=== PATIENT | female | born 1995 | race Caucasian/White ===

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

== ENCOUNTER 2017-09-22 02:24 | Emergency (ER) | payer MEDICAID ==
[2017-09-22 05:07] LABS: APPEARANCE CLOUDY (CLEAR); BILIRUBIN 2+ (NEGATIVE); COLOR DK YELLOW (YELLOW); GLUCOSE NEGATIVE (NEGATIVE); KETONE SMALL mg/dL (NEGATIVE); NITRITE NEGATIVE (NEGATIVE); PROTEIN 1+ mg/dL (NEGATIVE); SPECIFIC GRAVITY 1.025 (1.005-1.020); UROBILINOGEN NORMAL (NORMAL)
[2017-09-22 05:08] LABS: AMORPHOUS SEDIMENT <1+ /lpf (NONE SEEN); BACTERIA FEW /hpf (NONE SEEN); CALCIUM OXALATE CRYSTALS 0-5 /hpf (NONE SEEN)
== END 2017-09-22 05:22 | disposition home or self-care (01) ==
LOC: D.ER 02:24
PROVIDERS: Family Medicine
DX: O26.899 Other specified pregnancy related conditions, unspecified trimester (principal); Z3A.00 Weeks of gestation of pregnancy not specified; R11.2 Nausea with vomiting, unspecified; R10.9 Unspecified abdominal pain

== ENCOUNTER → 2017-11-19 16:46 | Outpatient (CLI) | payer MEDICAID ==
[~2017-11-19 16:46] MED LIST: HYDROCODONE-APA1 TAB PO; MOTRIN600 MG PO; NORCO 10-325 TA1 TAB PO
[2017-11-19 17:32] LABS: ALBUMIN 2.2 g/dL (3.4-5.0); ALKALINE PHOSPHATASE 130 U/L (46-116); ALT (SGPT) 14 U/L (10-68); BILIRUBIN - DIRECT 0.05 mg/dL (0.00-0.30); BILIRUBIN - TOTAL 0.15 mg/dL (0.2-1.3); CALC OSMOLALITY 271 mosm/kg (275-300); CALCIUM 8.6 mg/dL (8.5-10.1); CARBON DIOXIDE 27.3 mmol/L (21.0-32.0); CHLORIDE - SERUM 106 mmol/L (98-107); CREATININE - SERUM 0.6 mg/dL (0.6-1.3); GLUCOSE 83 mg/dL (74-106); POTASSIUM - SERUM 3.7 mmol/L (3.5-5.1); PROTEIN - SERUM 5.1 g/dL (6.4-8.2); SODIUM 138 mmol/L (136-145); UREA NITROGEN 5 mg/dL (7-18); URIC ACID 4.7 mg/dL (2.6-7.2); eGFR NON AFRICAN AMERICAN > 90 mL/min (90-120)
[2017-11-19 17:35] LABS: BASOPHILS 0.1 % (0-2); EOSINOPHILS 1.3 % (0-7); HEMATOCRIT 32.5 % (36.0-48.0); HEMOGLOBIN 11.3 g/dL (12-16); IMMATURE GRANULOCYTES 0.2 % (0-5); LYMPHOCYTES 27.9 % (15-50); MCH 30.5 pg (26.0-34.0); MCHC 34.8 g/dL (31.0-37.0); MCV 87.6 fL (80.0-100.0); MEAN PLATELET VOLUME 11.2 fL (7.4-10.4); MONOCYTES 7.2 % (2-11); NEUTROPHILS 63.3 % (40-80); PLATELET COUNT 167 10x3/uL (130-400); RBC 3.71 10x6/uL (4.00-5.40); WBC 9.1 10x3/uL (4.8-10.8)
[2018-01-20 13:52] VITALS: BMI 34.5
== END | disposition home or self-care (01) ==
LOC: D.LDO 16:46
PROVIDERS: Obstetrics & Gynecology
DX: O16.3 Unspecified maternal hypertension, third trimester (principal); Z3A.35 35 weeks gestation of pregnancy

== ENCOUNTER → 2017-11-22 22:21 | Outpatient (CLI) | payer MEDICAID ==
[2018-01-20 13:52] VITALS: BMI 34.5
== END | disposition home or self-care (01) ==
LOC: D.LDO 22:21
DX: O26.893 Other specified pregnancy related conditions, third trimester (principal); Z3A.35 35 weeks gestation of pregnancy

== ENCOUNTER → 2017-11-24 08:38 | Outpatient (CLI) | payer MEDICAID ==
[2018-01-20 13:52] VITALS: BMI 34.5
== END | disposition home or self-care (01) ==
LOC: D.LDO 08:38
DX: O13.3 Gestational [pregnancy-induced] hypertension without significant proteinuria, third trimester (principal); Z3A.36 36 weeks gestation of pregnancy

== ENCOUNTER → 2017-11-26 16:20 | Outpatient (CLI) | payer MEDICAID ==
[2017-11-26 16:48] LABS: HEMATOCRIT 32.8 % (36.0-48.0); HEMOGLOBIN 11.4 g/dL (12-16); MCH 30.4 pg (26.0-34.0); MCHC 34.8 g/dL (31.0-37.0); MCV 87.5 fL (80.0-100.0); MEAN PLATELET VOLUME 11.4 fL (7.4-10.4); RBC 3.75 10x6/uL (4.00-5.40); RDW 13.1 % (11.5-14.5); WBC 9.5 10x3/uL (4.8-10.8)
[2017-11-26 17:06] LABS: ALT (SGPT) 16 U/L (10-68); CALC OSMOLALITY 274 mosm/kg (275-300); CALCIUM 9.1 mg/dL (8.5-10.1); CARBON DIOXIDE 24.1 mmol/L (21.0-32.0); CHLORIDE - SERUM 105 mmol/L (98-107); CREATININE - SERUM 0.6 mg/dL (0.6-1.3); GLUCOSE 96 mg/dL (74-106); POTASSIUM - SERUM 3.8 mmol/L (3.5-5.1); SODIUM 138 mmol/L (136-145); UREA NITROGEN 9 mg/dL (7-18); URIC ACID 5.3 mg/dL (2.6-7.2); eGFR NON AFRICAN AMERICAN > 90 mL/min (90-120)
[2018-01-20 13:52] VITALS: BMI 34.5
== END | disposition home or self-care (01) ==
LOC: D.LDO 16:20
PROVIDERS: Obstetrics & Gynecology
DX: O14.93 Unspecified pre-eclampsia, third trimester (principal); Z3A.36 36 weeks gestation of pregnancy

== ENCOUNTER → 2017-11-29 09:25 | Outpatient (CLI) | payer MEDICAID ==
[2017-11-29 10:17] LABS: APPEARANCE TURBID (CLEAR); BILIRUBIN NEGATIVE (NEGATIVE); COLOR YELLOW (YELLOW); GLUCOSE NEGATIVE (NEGATIVE); KETONE NEGATIVE (NEGATIVE); NITRITE NEGATIVE (NEGATIVE); PROTEIN 3+ mg/dL (NEGATIVE); SPECIFIC GRAVITY 1.025 (1.005-1.020); UROBILINOGEN NORMAL (NORMAL)
[2017-11-29 10:19] LABS: AMORPHOUS SEDIMENT >1+ /lpf (NONE SEEN); BACTERIA MANY /hpf (NONE SEEN); CALCIUM OXALATE CRYSTALS 0-5 /hpf (NONE SEEN); MUCUS >1+ /lpf (NONE SEEN)
[2017-11-29 10:20] LABS: EPITHELIAL CELLS 0-5 /hpf (0-5)
[2017-11-29 10:23] LABS: ALKALINE PHOSPHATASE 147 U/L (46-116); ALT (SGPT) 12 U/L (10-68); BILIRUBIN - DIRECT 0.07 mg/dL (0.00-0.30); BILIRUBIN - INDIRECT 0.08 mg/dL (0.00-1.00); BILIRUBIN - TOTAL 0.15 mg/dL (0.2-1.3); CALC OSMOLALITY 271 mosm/kg (275-300); CALCIUM 8.6 mg/dL (8.5-10.1); CARBON DIOXIDE 23.3 mmol/L (21.0-32.0); CHLORIDE - SERUM 106 mmol/L (98-107); CREATININE - SERUM 0.5 mg/dL (0.6-1.3); GLUCOSE 97 mg/dL (74-106); POTASSIUM - SERUM 3.7 mmol/L (3.5-5.1); PROTEIN - SERUM 5.1 g/dL (6.4-8.2); SODIUM 137 mmol/L (136-145); UREA NITROGEN 7 mg/dL (7-18); URIC ACID 5.6 mg/dL (2.6-7.2); eGFR NON AFRICAN AMERICAN > 90 mL/min (90-120)
[2017-11-29 10:25] LABS: BASOPHILS 0.1 % (0-2); EOSINOPHILS 2.3 % (0-7); HEMATOCRIT 32.9 % (36.0-48.0); HEMOGLOBIN 11.2 g/dL (12-16); IMMATURE GRANULOCYTES 0.3 % (0-5); LYMPHOCYTES 25.8 % (15-50); MCH 29.9 pg (26.0-34.0); MCV 87.7 fL (80.0-100.0); MEAN PLATELET VOLUME 11.7 fL (7.4-10.4); MONOCYTES 7.7 % (2-11); NEUTROPHILS 63.8 % (40-80); PLATELET COUNT 184 10x3/uL (130-400); RBC 3.75 10x6/uL (4.00-5.40); RDW 13.1 % (11.5-14.5); WBC 7.8 10x3/uL (4.8-10.8)
[2018-01-20 13:52] VITALS: BMI 34.5
== END | disposition home or self-care (01) ==
LOC: D.LDO 09:25
PROVIDERS: Obstetrics & Gynecology
DX: O14.93 Unspecified pre-eclampsia, third trimester (principal); Z3A.36 36 weeks gestation of pregnancy

== ENCOUNTER 2017-11-30 21:10 | Outpatient (CLI) | payer MEDICAID ==
[2017-11-30 21:38] LABS: BASOPHILS 0.1 % (0-2); EOSINOPHILS 1.6 % (0-7); HEMATOCRIT 32.8 % (36.0-48.0); HEMOGLOBIN 11.4 g/dL (12-16); IMMATURE GRANULOCYTES 0.3 % (0-5); LYMPHOCYTES 32.7 % (15-50); MCH 30.5 pg (26.0-34.0); MCHC 34.8 g/dL (31.0-37.0); MCV 87.7 fL (80.0-100.0); MEAN PLATELET VOLUME 11.8 fL (7.4-10.4); MONOCYTES 8.2 % (2-11); NEUTROPHILS 57.1 % (40-80); PLATELET COUNT 182 10x3/uL (130-400); RBC 3.74 10x6/uL (4.00-5.40); WBC 9.4 10x3/uL (4.8-10.8)
[2017-11-30 21:47] LABS: APPEARANCE HAZY (CLEAR); BILIRUBIN NEGATIVE (NEGATIVE); COLOR YELLOW (YELLOW); GLUCOSE NEGATIVE (NEGATIVE); KETONE NEGATIVE (NEGATIVE); NITRITE NEGATIVE (NEGATIVE); PROTEIN 2+ mg/dL (NEGATIVE); SPECIFIC GRAVITY 1.025 (1.005-1.020); UROBILINOGEN NORMAL (NORMAL)
[2017-11-30 21:48] LABS: RED CELLS - URINE 0-5 /hpf (0-5)
[2017-11-30 21:49] LABS: BACTERIA MANY /hpf (NONE SEEN); EPITHELIAL CELLS 0-5 /hpf (0-5)
[2017-11-30 21:56] LABS: ALBUMIN 2.1 g/dL (3.4-5.0); ALKALINE PHOSPHATASE 168 U/L (46-116); ALT (SGPT) 13 U/L (10-68); BILIRUBIN - TOTAL 0.19 mg/dL (0.2-1.3); CALC OSMOLALITY 272 mosm/kg (275-300); CALCIUM 9.2 mg/dL (8.5-10.1); CARBON DIOXIDE 26.8 mmol/L (21.0-32.0); CHLORIDE - SERUM 105 mmol/L (98-107); CREATININE - SERUM 0.6 mg/dL (0.6-1.3); GLUCOSE 95 mg/dL (74-106); POTASSIUM - SERUM 4.3 mmol/L (3.5-5.1); PROTEIN - SERUM 5.4 g/dL (6.4-8.2); SODIUM 137 mmol/L (136-145); UREA NITROGEN 9 mg/dL (7-18); URIC ACID 5.4 mg/dL (2.6-7.2); eGFR NON AFRICAN AMERICAN > 90 mL/min (90-120)
[2018-01-20 13:52] VITALS: BMI 34.5
== END 2017-11-30 23:04 | disposition home or self-care (01) ==
LOC: D.LDO 21:10
PROVIDERS: Obstetrics & Gynecology
DX: O26.893 Other specified pregnancy related conditions, third trimester (principal); Z3A.37 37 weeks gestation of pregnancy; R60.0 Localized edema

== ENCOUNTER 2017-12-02 05:41 | Inpatient (IN) | payer MEDICAID ==
[~2017-12-02] VITALS: Ht 160 cm; Wt 105.7 kg
--- NOTE | ~2017-12-02 | OP ---
PATIENT NAME: BRENDA TERRAZAS MEDICAL RECORD: [id number] :97 LOCATION:[facility] D.1219 ADMISSION DATE:12/02/17 SURGEON: ANTHONY ATKINSON MD DATE OF OPERATION: 12/02/2017 PREOPERATIVE DIAGNOSES: 1. Preeclampsia. 2. Failed induction of labor. POSTOPERATIVE DIAGNOSES: 1. Preeclampsia. 2. Failed induction of labor. 3. Uterine atony. PROCEDURE: Primary low transverse section and B-Suárez uterine compression suture placement. SURGEON: Anthony Atkinson MD ESTIMATED BLOOD LOSS: Approximately 1000 cc. IV FLUIDS: Per anesthesia record. ANESTHESIA: Regional via Epidural. COMPLICATIONS: Uterine atony. SPECIMENS: Placenta and cord for gases. FINDINGS: Viable . Placenta delivered manually intact, 3-vessel cord noted. Normal adnexa bilaterally. Finally, uterine atony requiring medical and surgical intervention. ESTIMATED BLOOD LOSS: 1000 cc. PROCEDURE: The patient was taken to the operating room where regional anesthesia was achieved without difficulty. The patient was then prepped in normal sterile fashion in the dorsal supine position. SCDs were on and functioning normally. A Forrester catheter had been placed and was draining freely. At this point, a Pfannenstiel skin incision was made, extended downward to the underlying subcutaneous fat to the level of the fascia. Fascia was then excised in the midline horizontally using the scalpel and the fascial incision was extended bilaterally using the Mcintyre scissors. The fascial incision edges were then grasped superiorly and inferiorly and tented upward, and sharply dissected from the underlying rectus muscle using the Bovie cautery and the Mcintyre scissors. Rectus muscles were then bluntly in the midline. The peritoneum identified and entered sharply at the superior aspect of the incision using the Metzenbaum scissors. The peritoneal incision was then extended bilaterally using the Metzenbaum scissors. A bladder blade was placed into the pelvis and a bladder flap created by excising the anterior leaf of the broad ligament across the lower uterine segment. A low transverse incision was made and extended using the Pelosi method. The infant's head was found to be extended and a Kiwi vacuum was placed on the occiput with correction to head flexion, 1 application, no pop offs, with delivery of the vertex without traction on the neck. Upon delivery of the vertex, the vacuum was removed and the OPERATIVE REPORT [id number] BRENDA TERRAZAS infant's body was delivered atraumatically. The baby was bulb suctioned upon delivery. Cord was clamped times 2, cut, and the was handed to the awaiting nursery team. Cord was then obtained for gases and the placenta was removed manually and intact. The uterus was then exteriorized and found to have very little tone. Following cleaning of the uterus of all clots and debris, the uterus was vigorously massaged. The patient was given IM Hemabate as well as Cytotec per rectum and Pitocin and vigorous massage continued. Despite several minutes vigorous massage and the medical therapy, the uterine tone was still very poor. At this point, bleeding was being controlled by manual compression of the uterus. Attention was then turned to the uterine incision where the lateral thirds of the uterine incision were repaired with 0 Vicryl in a running locked fashion with an open portion of the incision in the middle, kept purposely. At this point, an 0 chromic suture was then used to perform a B-Suárez compression suture in the right aspect of the uterine incision. The chromic suture was anchored carried across the fundus of the uterus on the right, then anchored posteriorly in the back and the suture then drawn across the fundus on the left side and then anchored anteriorly on the left aspect of the incision. The uterus was then manually compressed and the chromic suture was then cinched down and tied manually compressing the uterus. Minimal bleeding was noted from the open portion of the scar and a third 0 Vicryl suture was then used to oversew the middle portion of the low transverse incision. The posterior cul-de-sac was then thoroughly irrigated and uterus was replaced into the pelvis. The uterus was monitored for several minutes until some descent uterine tone was noted and to ensure that the B-Suárez suture was holding. When this was felt to be the case, the anterior cul-de-sac was then thoroughly irrigated. Counts were correct times 2 for needles, sponges, and instruments. The fascia was repaired with 0 loop PDS times 1 and the skin repaired with madiha. Prior to madiha, the subcutaneous fat was approximated using 0 plain gut. The patient tolerated procedure well, transferred to postanesthesia recovery stable without incident. TRANSINT:[id number] Voice Confirmation ID: [id number] DOCUMENT ID: [id number] ANTHONY ATKINSON MD at 8490 CC: [id number] DICTATION DATE: 12/15/17 0711 SCREW EYE ASSEMBLER: 12/15/17 0801 DIS IN 12/04/17 [facility] [address] [place] [id number]
--- NOTE | ~2017-12-02 | DS ---
PATIENT:BRENDA TERRAZAS :97 MEDICAL RECORD: [id number] DISCHARGE SUMMARY ADMISSION DATE: 12/02/17 DISCHARGE DATE: 12/04/17 The patient was admitted on 12/02/2017. A 22-year-old G1 at 37 weeks and 2 days, admitted for maternal/gestational hypertension. The patient was noted to be A positive, group B strep negative and rubella nonimmune. At admit, the patient was thought to be developing mild preeclampsia. The patient had a past medical history significant for remote seizures during childhood and hypertension as noted. The patient reported no significant surgical history. The patient reported a family history significant for apparent cardiovascular disease, not otherwise specified. The patient reported social history significant for being a former tobacco user. PHYSICAL EXAMINATION: VITAL SIGNS: On initial assessment, blood pressure is found to be mildly elevated. No severe blood pressures were noted. LUNGS: Clear to auscultation. CARDIOVASCULAR: Regular rate and rhythm. PELVIC: Uterus was appropriately sized and nontender. EXTREMITIES: Lower extremities were free of Homans sign, erythema, or swelling. wellbeing was reassuring with category 1 tracing. ASSESSMENT: At admission, 1. Term intrauterine at 37 weeks and 2 days. 2. Mild preeclampsia. 3. Rubella nonimmune. 4. History of childhood seizures. PLAN: At that time for Pitocin induction of labor. Risks and benefits were discussed with the patient. No signs or symptoms of severe preeclampsia at that point. After 13 hours, the Pitocin was discontinued because of lack of cervical change. The patient was also noticed to be having worsening blood pressures, however, not persistently severe. Risks and benefits of were discussed and the patient opted to proceed with . was explained. The patient voiced understanding and consented. At that time, continued category 1 tracing. Operative report is as dictated. Overnight on postop day #0, the patient with a Dilaudid PERSONNEL COORDINATOR, IV fluids, IV Toradol for pain. The patient was on a clear liquid diet. Careful attention was paid throughout the night for the level of the uterine fundus, which was always found overnight to be inferior to the umbilicus. The patient had a Forrester catheter and urine output was adequate. Initial hemoglobin was found to be normal, the magnesium sulfate was held due to the uterine atony. On the morning of postop day #1, the patient continued to do well. Blood pressures were improving. The rest of her vital signs were stable. The uterus DISCHARGE SUMMARY REPORT [id number] BRENDA TERRAZAS was infraumbilical and appropriately tender. Incision was clean, dry and intact. On the morning, CBC was found to be within normal limits for blood loss. The patient was advanced at that time to general diet and p.o. pain meds. Forrester was discontinued and ambulation begun. The patient continued to do well overnight on postop day #1. On the morning of postop day #2, vital signs remained stable. The patient was afebrile. Blood pressures were continuing to improve. Incision clean, dry and intact and uterus was infraumbilical. The patient reported minimal to moderate lochia. The patient was discharged on postop day #2 with instructions to follow up in a few days for staple removal and blood pressure check. TRANSINT:[id number] Voice Confirmation ID: [id number] DOCUMENT ID: [id number] RODRIGO ESTRADA MD at 1754 CC: [id number] DICTATION DATE: 12/15/17 07 BENCH WORKER BINDING: 12/16/17 0356 DIS IN 12/04/17 [facility] [address] [place] [address]
[2017-12-02 00:59] VITALS: BP 172/106
[2017-12-02 07:10] LABS: HEMATOCRIT 32.5 % (36.0-48.0); HEMOGLOBIN 11.3 g/dL (12-16); MCH 30.3 pg (26.0-34.0); MCHC 34.8 g/dL (31.0-37.0); MCV 87.1 fL (80.0-100.0); RBC 3.73 10x6/uL (4.00-5.40); WBC 8.2 10x3/uL (4.8-10.8)
[2017-12-02 07:33] LABS: CALC OSMOLALITY 268 mosm/kg (275-300); CALCIUM 8.6 mg/dL (8.5-10.1); CARBON DIOXIDE 24.6 mmol/L (21.0-32.0); CHLORIDE - SERUM 105 mmol/L (98-107); CREATININE - SERUM 0.5 mg/dL (0.6-1.3); GLUCOSE 82 mg/dL (74-106); POTASSIUM - SERUM 3.7 mmol/L (3.5-5.1); SODIUM 136 mmol/L (136-145); UREA NITROGEN 7 mg/dL (7-18); URIC ACID 5.5 mg/dL (2.6-7.2); eGFR NON AFRICAN AMERICAN > 90 mL/min (90-120)
[2017-12-02 07:35] LABS: APPEARANCE CLOUDY (CLEAR); BILIRUBIN NEGATIVE (NEGATIVE); COLOR YELLOW (YELLOW); EPITHELIAL CELLS >50 /hpf (0-5); GLUCOSE NEGATIVE (NEGATIVE); KETONE NEGATIVE (NEGATIVE); NITRITE NEGATIVE (NEGATIVE); PROTEIN 2+ mg/dL (NEGATIVE); SPECIFIC GRAVITY 1.015 (1.005-1.020); UROBILINOGEN NORMAL (NORMAL)
[2017-12-02 07:36] LABS: BACTERIA MANY /hpf (NONE SEEN); CALCIUM OXALATE CRYSTALS 0-5 /hpf (NONE SEEN); MUCUS <1+ /lpf (NONE SEEN)
[2017-12-02 23:39] VITALS: BP 178/90
[2017-12-03] VITALS (11 sets, daily range): BP systolic 121–173; BP diastolic 65–96
[2017-12-03 06:55] LABS: BASOPHILS 0.1 % (0-2); EOSINOPHILS 0 % (0-7); HEMATOCRIT 29.4 % (36.0-48.0); HEMOGLOBIN 10.2 g/dL (12-16); IMMATURE GRANULOCYTES 0.3 % (0-5); LYMPHOCYTES 9.4 % (15-50); MCH 30.4 pg (26.0-34.0); MCHC 34.7 g/dL (31.0-37.0); MCV 87.5 fL (80.0-100.0); MEAN PLATELET VOLUME 12.3 fL (7.4-10.4); NEUTROPHILS 83.2 % (40-80); PLATELET COUNT 174 10x3/uL (130-400); RBC 3.36 10x6/uL (4.00-5.40); RDW 13.2 % (11.5-14.5); WBC 17.5 10x3/uL (4.8-10.8)
[2017-12-03 08:19] LABS: RAPID PLASMA REAGIN Non Reactive (Non Reactive)
[2017-12-04 04:30] VITALS: BP 140/77
[2017-12-04 07:23] VITALS: BP 129/93
[2017-12-04 12:14] VITALS: BP 151/89
[2017-12-04] MEDS ORDERED: MOTRIN600 MG PO (15:14)
[2017-12-04] MEDS ORDERED: HYDROCODONE-APA1 TAB PO (15:14)
== END 2017-12-04 18:20 | disposition home or self-care (01) | DRG 766 ==
LOC: D.LD → D.WS 05:41 → D.LD 12:25 → D.WS 12-03 09:50
PROVIDERS: Obstetrics & Gynecology
PROC: 10D00Z1 Extraction of Products of Conception, Low, Open Approach (ICD-10-PCS; principal; 2017-12-02 21:56)
DX: O14.04 Mild to moderate pre-eclampsia, complicating childbirth (principal); Z37.0 Single live birth; Z3A.37 37 weeks gestation of pregnancy; O75.89 Other specified complications of labor and delivery

== ENCOUNTER 2018-01-18 01:51 | Inpatient (IN) | payer MEDICAID ==
[~2018-01-18] VITALS: Ht 160 cm; Wt 88.5 kg
--- NOTE | ~2018-01-18 | OP ---
PATIENT NAME: BRENDA TERRAZAS MEDICAL RECORD: [id number] :97 LOCATION:D.MS [id number] ADMISSION DATE:01/18/18 SURGEON: ABHI TAVERAS MD DATE OF OPERATION: 01/19/2018 PREOPERATIVE DIAGNOSES: 1. Acute cholecystitis. 2. Elevated liver function test. POSTOPERATIVE DIAGNOSES: 1. No acute cholecystitis. 2. Nearly obstructing distal common bile duct stone. 3. Hepatomegaly. 4. Elevated liver function test. 5. Suprapubic incarcerated incisional hernia. 6. Adhesions to the gallbladder. PROCEDURES: 1. Laparoscopic cholecystectomy. 2. Intraoperative cholangiography without immediate surgeon interpretation. 3. A 14-gauge core needle liver biopsy. SURGEON: Abhi Taveras MD BUHR DRESSER: None. BLOOD LOSS: Minimal. ANESTHESIA: General. COMPLICATIONS: None. DRAINS: Times one (10-Lao round fully fluted and closed system drain). The indication for the liver biopsy was hepatomegaly as well as elevated liver function test. She had a mixed picture that could have represented either acute cholecystitis or biliary obstruction. OPERATIVE COURSE: The patient was conveyed to the operating room urgently on 01/19/2018. General anesthesia was induced by the anesthesia staff. The abdomen was sterilely prepped and draped. A small skin padmini was accomplished in the left upper quadrant. A Veress needle was inserted through the skin padmini into the peritoneal cavity. CO2 insufflation was begun. Once sufficient pneumoperitoneum had been achieved, a 5-mm trocar was inserted through an incision in the right upper quadrant. Under direct internal vision utilizing a television camera, a 12-mm trocar was inserted through an incision in the umbilicus. Another 5-mm trocar was inserted through an incision in the epigastrium. Another 5-mm trocar was inserted far laterally in the right upper quadrant. During insertion of the Veress needle and all trocars, there appeared to have been no injury to the bowels, any intraperitoneal or retroperitoneal structures. An abdominal survey was undertaken. The findings are listed above. I advanced a 14-gauge core needle liver biopsy device. Cores were obtained over OPERATIVE REPORT [id number] BRENDA TERRAZAS the convexity of the liver. The biopsy sites were made hemostatic with electrocautery. The gallbladder was identified. It was punctured with a cholangiogram trocar at the fundus of the gallbladder. I aspirated bile. I then injected dye. Under real time fluoroscopy, cholangiographic images were obtained. This revealed distal common bile duct filling defect, which was nearly obstructing. This likely represents a stone that has been ball valving. The cholangiogram trocar was removed. The gallbladder was grasped and retracted cephalad. Adhesions to the gallbladder were taken down bluntly. Blunt dissection was begun in the triangle of Calot. One cystic artery and one cystic duct were identified. These were clipped multiply and divided between clips. The gallbladder was then excised from its bed in the liver. It was placed within a bag retrieval device and was withdrawn through the umbilical fascia defect. The 12-mm trocar was replaced and the abdomen was reinsufflated. I irrigated and aspirated the right upper quadrant. There was no bleeding even at low pressure of 8. I advanced a 10-Lao fully fluted drain through one of the 5-mm trocar sites. The Gareth-Chana suture closure device and a #0 Vicryl were used to close the fascia at the umbilicus. All the trocars were removed and the abdomen was desufflated. The skin incisions at the small trocar sites were closed with interrupted 3-0 Vicryls. The drain was sutured to the skin with 4-0 nylon. The skin at the umbilicus was closed with interrupted 4-0 Vicryl Rapide sutures. Benzoin and Steri-Strips were applied. The patient was then extubated and conveyed to the postanesthesia care unit, where she was in stable condition. I will consult Dr. Pham for an ERCP as the patient has a nearly obstructing common bile duct stone and has an increasing bilirubin level. TRANSINT:[id number] Voice Confirmation ID: [id number] DOCUMENT ID: [id number] ABHI TAVERAS MD at 1331 CC: ARIEL TOBAR MD and HSAY PHAM DO [id number] DICTATION DATE: 01/19/18 161 CLINICAL TRIAL SPECIALIST: 01/19/18 1733 DIS IN 01/23/18 [facility] [address] [place] [address]
--- NOTE | ~2018-01-18 | HP ---
PATIENT: BRENDA TERRZAAS MEDICAL RECORD: [id number] ACCOUNT: [id number] LOCATION:D.MS [id number] : 97 ADMISSION DATE: 01/18/18 PCP: No PCP HISTORY AND PHYSICAL EXAMINATION DATE OF ADMISSION: 01/18/2018 CHIEF COMPLAINT: Abdominal pain. HISTORY: This is a 22-year-old female, who presented to the ER complaining of chest pain, but pointed more to the epigastric area. Pain has been worsening over the last 3 days. She has had some indigestion, a little nausea. No vomiting. No fever or chills. Pain is aching and dull, sometimes radiates to her back. Does not seem to be associated with eating. She just had a about 6 weeks ago and was treated for preeclampsia during her by Dr. Church. In the ER, her CBC, urinalysis, and basic metabolic panel were all normal, but her liver enzymes were elevated. Ultrasound of the gallbladder has shown cholelithiasis and sludge consistent with more chronic cholecystitis; however, with her elevated liver enzymes, there is probably some acuteness going on. CT of the abdomen and pelvis was done showing nothing acute as far as inflammatory or infectious process. Appendix looked normal. She is admitted for further evaluation and surgical consultation. PAST MEDICAL AND SURGICAL HISTORY: Again preeclampsia with recent , delivery of a son about 6 weeks ago. Past surgical history of . HOME MEDICATIONS: None. ALLERGIES: None. FAMILY HISTORY: Heart disease is in the family. The patient's older sister and the patient's father both had their gallbladders taken out. HABITS: Denies tobacco or alcohol or drugs. SOCIAL HISTORY: Lives with her fiance and her 6-month-old son. She works at [employer]. REVIEW OF SYSTEMS: GENERAL: No major weight changes. HEENT: No particular sinus or allergy problems. RESPIRATORY: No history of asthma or emphysema. CARDIAC: No chest pain or palpitations. GASTROINTESTINAL: No diarrhea, constipation or heartburn. GENITOURINARY: No significant problems there. MUSCULOSKELETAL: No problems. NEUROLOGIC: No headaches. PSYCHIATRIC: Denies depression or melancholia. PHYSICAL EXAMINATION: VITAL SIGNS: Temperature 98.1, pulse 55, respirations 18, blood pressure 122/65, O2 sat 98%. GENERAL: She appears to be in no acute distress. She is awake and alert. HEENT: Grossly within normal limits. NECK: Supple. HISTORY AND PHYSICAL [id number] TERRAZASBRENDA HEART: Regular rate and rhythm without murmur. LUNGS: Clear. ABDOMEN: Soft. Tenderness is located in the epigastric area. No guarding, no rebound, no mass. EXTREMITIES: No edema. LABORATORY DATA: CBC is normal with a white count of 8000. Urinalysis: Specific gravity 1.025, 2+ blood, 3+ bilirubin, and leukocyte esterase is negative, no bacteria. Basic metabolic panel is all normal. Her AST is elevated at 156, ALT elevated at 372, alkaline phosphatase elevated at 314, total bilirubin 3.88, amylase 24, lipase 139. Ultrasound of the gallbladder shows cholelithiasis and sludge consistent with chronic cholecystitis. CT of the abdomen and pelvis, no acute inflammatory or infectious process. Normal appendix. ASSESSMENT: 1. Abdominal pain. 2. Elevated liver enzymes. 3. Cholelithiasis. PLAN: Dr. Bryan has been consulted. We will provide IV fluids. Pain control. Other tests and procedures as warranted. TRANSINT:[id number] Voice Confirmation ID: [id number] DOCUMENT ID: [id number] ARIEL TOBAR MD at 1459 CC: [id number] DICTATION DATE: 01/18/18 1053 WELL SERVICE DERRICK WORKER: 01/18/18 1130 ADM IN [place] [id number] [place] [id number]
[~2018-01-18 01:51] MED LIST changes: -NORCO 10-325 TA1 TAB PO
[2018-01-18 02:15] LABS: BASOPHILS 0.5 % (0-2); EOSINOPHILS 4.6 % (0-7); HEMATOCRIT 37.8 % (36.0-48.0); HEMOGLOBIN 12.8 g/dL (12-16); IMMATURE GRANULOCYTES 0.1 % (0-5); LYMPHOCYTES 37.8 % (15-50); MCH 29.2 pg (26.0-34.0); MCHC 33.9 g/dL (31.0-37.0); MCV 86.1 fL (80.0-100.0); MEAN PLATELET VOLUME 10.2 fL (7.4-10.4); MONOCYTES 9.6 % (2-11); NEUTROPHILS 47.4 % (40-80); RBC 4.39 10x6/uL (4.00-5.40); RDW 13.2 % (11.5-14.5)
[2018-01-18 02:22] LABS: PLATELET COUNT 276 10x3/uL (130-400)
[2018-01-18 02:24] LABS: APPEARANCE HAZY (CLEAR); BILIRUBIN 3+ (NEGATIVE); COLOR DK YELLOW (YELLOW); GLUCOSE NEGATIVE (NEGATIVE); KETONE NEGATIVE (NEGATIVE); NITRITE NEGATIVE (NEGATIVE); PROTEIN TRACE mg/dL (NEGATIVE); SPECIFIC GRAVITY 1.025 (1.005-1.020); UROBILINOGEN NORMAL (NORMAL)
[2018-01-18 02:25] LABS: HCG SERUM NEGATIVE (NEGATIVE)
[2018-01-18 02:29] LABS: ALBUMIN 3.4 g/dL (3.4-5.0); ALKALINE PHOSPHATASE 314 U/L (46-116); ALT (SGPT) 372 U/L (10-68); AMYLASE - SERUM 24 U/L (25-115); BILIRUBIN - TOTAL 3.88 mg/dL (0.2-1.3); CALC OSMOLALITY 279 mosm/kg (275-300); CARBON DIOXIDE 26.5 mmol/L (21.0-32.0); CHLORIDE - SERUM 104 mmol/L (98-107); CREATININE - SERUM 0.8 mg/dL (0.6-1.3); GLUCOSE 100 mg/dL (74-106); LIPASE 139 U/L (73-393); POTASSIUM - SERUM 3.8 mmol/L (3.5-5.1); PROTEIN - SERUM 7.1 g/dL (6.4-8.2); SODIUM 141 mmol/L (136-145); UREA NITROGEN 10 mg/dL (7-18); eGFR NON AFRICAN AMERICAN > 90 mL/min (90-120)
[2018-01-18 02:36] LABS: BACTERIA NONE SEEN /hpf (NONE SEEN); EPITHELIAL CELLS NSEEN /hpf (0-5); RED CELLS - URINE NONE SEEN /hpf (0-5); WHITE CELLS - URINE RARE /hpf (0-5)
[2018-01-18 03:06] LABS: BILIRUBIN - DIRECT 3.31 mg/dL (0.00-0.30); BILIRUBIN - INDIRECT 0.57 mg/dL (0.00-1.00); BILIRUBIN - TOTAL 3.88 mg/dL (0.2-1.3)
[2018-01-18 06:01] VITALS: BP 118/73; BMI 34.6
[2018-01-18 08:33] VITALS: BP 122/65
[2018-01-18 12:31] VITALS: BP 122/74
[2018-01-18 16:11] VITALS: BP 113/73
[2018-01-18 20:00] VITALS: BP 124/67
[2018-01-18 23:05] LABS: HCG SERUM NEGATIVE (NEGATIVE)
[2018-01-19] VITALS: BP 119/77
[2018-01-19 04:00] VITALS: BP 120/70
[2018-01-19 05:17] LABS: BASOPHILS 0.7 % (0-2); EOSINOPHILS 5.3 % (0-7); HEMATOCRIT 34.7 % (36.0-48.0); HEMOGLOBIN 11.4 g/dL (12-16); IMMATURE GRANULOCYTES 0.2 % (0-5); LYMPHOCYTES 46.1 % (15-50); MCH 28.4 pg (26.0-34.0); MCHC 32.9 g/dL (31.0-37.0); MCV 86.5 fL (80.0-100.0); MEAN PLATELET VOLUME 10.4 fL (7.4-10.4); NEUTROPHILS 36.7 % (40-80); PLATELET COUNT 265 10x3/uL (130-400); RBC 4.01 10x6/uL (4.00-5.40); RDW 13.5 % (11.5-14.5)
[2018-01-19 05:29] LABS: ALBUMIN 2.9 g/dL (3.4-5.0); ALKALINE PHOSPHATASE 299 U/L (46-116); BILIRUBIN - DIRECT 3.56 mg/dL (0.00-0.30); BILIRUBIN - INDIRECT 0.93 mg/dL (0.00-1.00); BILIRUBIN - TOTAL 4.49 mg/dL (0.2-1.3); CALC OSMOLALITY 278 mosm/kg (275-300); CALCIUM 8.6 mg/dL (8.5-10.1); CARBON DIOXIDE 24.1 mmol/L (21.0-32.0); CHLORIDE - SERUM 106 mmol/L (98-107); CREATININE - SERUM 0.7 mg/dL (0.6-1.3); GLUCOSE 106 mg/dL (74-106); LIPASE 145 U/L (73-393); MAGNESIUM - SERUM 1.9 mg/dL (1.8-2.4); PHOSPHOROUS 4.2 mg/dL (2.5-4.9); POTASSIUM - SERUM 3.6 mmol/L (3.5-5.1); PROTEIN - SERUM 6.1 g/dL (6.4-8.2); SODIUM 141 mmol/L (136-145); UREA NITROGEN 8 mg/dL (7-18); eGFR NON AFRICAN AMERICAN > 90 mL/min (90-120)
[2018-01-19 05:35] LABS: WBC 5.5 10x3/uL (4.8-10.8)
[2018-01-19 05:38] LABS: ALT (SGPT) 261 U/L (10-68)
[2018-01-19 08:28] VITALS: BP 150/88
[2018-01-19 11:31] VITALS: BP 120/63
[2018-01-19 17:02] VITALS: BP 154/94
[2018-01-19 21:07] VITALS: BP 147/97
[2018-01-20 04:24] LABS: BASOPHILS 0.2 % (0-2); EOSINOPHILS 0.2 % (0-7); HEMATOCRIT 36.5 % (36.0-48.0); HEMOGLOBIN 12.3 g/dL (12-16); IMMATURE GRANULOCYTES 0.2 % (0-5); MCH 29.1 pg (26.0-34.0); MCHC 33.7 g/dL (31.0-37.0); MCV 86.5 fL (80.0-100.0); MEAN PLATELET VOLUME 10.1 fL (7.4-10.4); MONOCYTES 7.7 % (2-11); NEUTROPHILS 69.7 % (40-80); RBC 4.22 10x6/uL (4.00-5.40)
[2018-01-20 04:36] LABS: PLATELET COUNT 319 10x3/uL (130-400); WBC 9.1 10x3/uL (4.8-10.8)
[2018-01-20 04:38] LABS: ALBUMIN 2.8 g/dL (3.4-5.0); ALKALINE PHOSPHATASE 323 U/L (46-116); ALT (SGPT) 262 U/L (10-68); BILIRUBIN - TOTAL 4.21 mg/dL (0.2-1.3); CALCIUM 8.5 mg/dL (8.5-10.1); CARBON DIOXIDE 23.6 mmol/L (21.0-32.0); CHLORIDE - SERUM 104 mmol/L (98-107); CREATININE - SERUM 0.6 mg/dL (0.6-1.3); GLUCOSE 108 mg/dL (74-106); MAGNESIUM - SERUM 1.7 mg/dL (1.8-2.4); PHOSPHOROUS 4.4 mg/dL (2.5-4.9); POTASSIUM - SERUM 3.9 mmol/L (3.5-5.1); PROTEIN - SERUM 6.2 g/dL (6.4-8.2); SODIUM 141 mmol/L (136-145); eGFR NON AFRICAN AMERICAN > 90 mL/min (90-120)
[2018-01-20 04:46] LABS: CALC OSMOLALITY 278 mosm/kg (275-300); UREA NITROGEN 5 mg/dL (7-18)
[2018-01-20 05:09] VITALS: BP 164/84
[2018-01-20 08:45] VITALS: BP 155/97
[2018-01-20 13:21] VITALS: BP 137/66
[2018-01-20 13:52] VITALS: Ht 160 cm; Wt 88.5 kg
[2018-01-20 16:41] VITALS: BP 126/77
[2018-01-20 21:01] VITALS: BP 140/92
[2018-01-21 04:57] VITALS: BP 154/84
[2018-01-21 09:19] VITALS: BP 130/76
[2018-01-21 10:09] LABS: ALBUMIN 2.7 g/dL (3.4-5.0); ALKALINE PHOSPHATASE 362 U/L (46-116); ALT (SGPT) 247 U/L (10-68); BILIRUBIN - TOTAL 4.86 mg/dL (0.2-1.3); CALC OSMOLALITY 271 mosm/kg (275-300); CALCIUM 8.7 mg/dL (8.5-10.1); CARBON DIOXIDE 28.6 mmol/L (21.0-32.0); CHLORIDE - SERUM 104 mmol/L (98-107); CREATININE - SERUM 0.7 mg/dL (0.6-1.3); GLUCOSE 104 mg/dL (74-106); POTASSIUM - SERUM 3.5 mmol/L (3.5-5.1); PROTEIN - SERUM 5.9 g/dL (6.4-8.2); SODIUM 137 mmol/L (136-145); UREA NITROGEN 6 mg/dL (7-18); eGFR NON AFRICAN AMERICAN > 90 mL/min (90-120)
[2018-01-21 13:27] VITALS: BP 154/80
[2018-01-21 17:44] VITALS: BP 153/79
[2018-01-21 18:11] LABS: HEPATITIS C ANTIBODY <0.1 (0.0-0.9)
[2018-01-21 21:10] VITALS: BP 135/86
[2018-01-22 05:07] VITALS: BP 154/54
[2018-01-22 08:48] VITALS: BP 139/90
[2018-01-22 12:10] VITALS: BP 176/83
[2018-01-22 12:36] LABS: INR 0.92 (0.85-1.17)
[2018-01-22 14:50] VITALS: BP 150/88
[2018-01-22 21:11] VITALS: BP 131/80
[2018-01-23 06:26] VITALS: BP 145/76
[2018-01-23 07:18] LABS: ALBUMIN 2.6 g/dL (3.4-5.0); ALKALINE PHOSPHATASE 427 U/L (46-116); ALT (SGPT) 203 U/L (10-68); BILIRUBIN - TOTAL 1.32 mg/dL (0.2-1.3); CALCIUM 8.6 mg/dL (8.5-10.1); CARBON DIOXIDE 26.8 mmol/L (21.0-32.0); CHLORIDE - SERUM 105 mmol/L (98-107); CREATININE - SERUM 0.7 mg/dL (0.6-1.3); GLUCOSE 128 mg/dL (74-106); POTASSIUM - SERUM 3.3 mmol/L (3.5-5.1); PROTEIN - SERUM 6.1 g/dL (6.4-8.2); SODIUM 140 mmol/L (136-145); eGFR NON AFRICAN AMERICAN > 90 mL/min (90-120)
[2018-01-23 07:20] LABS: CALC OSMOLALITY 278 mosm/kg (275-300); UREA NITROGEN 8 mg/dL (7-18)
[2018-01-23 08:45] VITALS: BP 103/51
[2018-01-23] MEDS ORDERED: NORCO 10-325 TA1 TAB PO (08:47)
[2018-01-24 03:13] LABS: DEOXYCHOLIC ACID 1.5 umol/L (()); URSODEOXYCHOLIC ACID 1.2 umol/L (())
== END 2018-01-23 12:42 | disposition home or self-care (01) | DRG 419 ==
LOC: D.ER 01:51 → D.MS 05:29
PROVIDERS: Anesthesiology; Emergency Medicine; Family Medicine; Internal Medicine Gastroenterology; Surgery
PROC: 0FB03ZX Excision of Liver, Percutaneous Approach, Diagnostic (ICD-10-PCS; 2018-01-19)
PROC: BF131ZZ Fluoroscopy of Gallbladder and Bile Ducts using Low Osmolar Contrast (ICD-10-PCS; 2018-01-19)
PROC: 0FT44ZZ Resection of Gallbladder, Percutaneous Endoscopic Approach (ICD-10-PCS; principal; 2018-01-19 08:17)
PROC: 0FC98ZZ Extirpation of Matter from Common Bile Duct, Via Natural or Artificial Opening Endoscopic (ICD-10-PCS; 2018-01-22)
DX: K80.51 Calculus of bile duct without cholangitis or cholecystitis with obstruction (principal); K82.8 Other specified diseases of gallbladder; K43.2 Incisional hernia without obstruction or gangrene; R56.9 Unspecified convulsions

== ENCOUNTER 2018-06-16 21:15 | Emergency (ER) | payer MEDICAID ==
[~2018-06-16] VITALS: Ht 160 cm; Wt 88.6 kg
[~2018-06-16 21:15] MED LIST changes: +NORCO 10-325 TA1 TAB PO
[2018-06-16 21:18] VITALS: Ht 160 cm; Wt 88.6 kg
[2018-06-16] MEDS ORDERED: OMEPRAZOLE40 MG PO (22:49)
[2018-06-16 23:00] VITALS: BP 125/62
== END 2018-06-16 23:01 | disposition home or self-care (01) ==
LOC: D.ER 21:15
DX: R07.81 Pleurodynia (principal); K21.9 Gastro-esophageal reflux disease without esophagitis